=== PATIENT | female | born 1955 | race Caucasian/White ===

== ENCOUNTER 2016-05-29 09:31 | Emergency (ER) | payer BC ==
[~2016-05-29 09:31] MED LIST: ACETAMINOPHEN325 MG PO; AMBIEN5 MG PO; EFFEXOR25 MG PO; LANOXIN0.25 MG PO; LOPRESSOR25 MG PO; LORAZEPAM1 MG PO; METOPROLOL SUCCINATE PO; NITROSTAT0.4 MG SL; OMEPRAZOLE20 M1 PO; Prazosin PO; SIMVASTATIN20 MG PO; VICODIN EQUIVAL1 TAB PO; VITAMIN B12100 MCG PO; VITAMIN D-31000 UNIT PO; brintellix PO
--- NOTE | 2016-05-29 10:37 | ED CLINICAL REPORT ---
Clinical Report - Physicians/Mid Levels [facility] [address] [place] [address] 05/29/2016 9:31 Patient: MATT AGUAYO Time Seen: 10:26. Arrived- By private vehicle. Historian- patient. HISTORY OF PRESENT ILLNESS Chief Complaint: DYSURIA. This started today and still present. It was abrupt in onset and has been constant. The symptoms are described as severe. The patient has had burning pain with urination. It is described as "painful", has occurred during urination and has been associated with urgency and frequency. The patient has had urinary frequency. The patient has had urgency of urination. No hematuria. The patient has had a hysterectomy. REVIEW OF SYSTEMS No chills, fever, sweats, calf pain or chest pain. No cough, difficulty breathing, pedal edema, palpitations or abdominal pain. No constipation, diarrhea, vomiting or urinary problems. The patient has had nausea. She has had back pain (chronically). It has been similar to previous symptoms. All systems otherwise negative, except as recorded above. PAST HISTORY ( PCP - Shawna). Problems: Abdominal Pain. Cancer. Pancreatitis. Paralytic Ileus. Chest Pain. Gallbladder Disease. Arrythmia. Back Pain. Heart Disease. Reflux. Hypercholesterolemia. Hyperc. "heart palpitations". UTI - Urinary Tract Infection. Breast Cancer. Hystectomy. Appendicitis. Additional Surgeries: Appendectomy. Breast reconstruction. Cholecystectomy. Hysterectomy. Laparoscopy. Lumpectomy right side. Oophorectomy. Salpingectomy. Medications: LORazepam Oral 0.5 mg (hasn't started taking yet). Metoprolol Succinate ER Oral 50 mg (hasn't started taking yet). Metoprolol Tartrate Oral (Tablet 25 mg) 1 tablet, q day. Omeprazole Oral 20 mg, 2x a day. Prazosin HCl Oral 0.1mg (hasn't started taking yet). Simvastatin Oral 20 mg, daily. Vitamin B 12 Oral 1 tab, daily. Vitamin D3 Oral (Tablet 2000 unit) 2 tablets, daily. Zolpidem Tartrate Oral 5-10 mg, at bedtime as needed. Brintellix Oral (Tablet 10 mg) 1 tablet, BID (hasn't started taking yet). Lanoxin Oral 0.125 mg, daily. Allergies: Pastic tape. SOCIAL HISTORY Never smoker. No alcohol use or drug use. FAMILY HISTORY father due to myasthenia gravis complications. ADDITIONAL NOTES The nursing notes have been reviewed. PHYSICAL EXAM Vital Signs: 05/29/2016 10:10 BP: 122/86. HR: 80. RR: 16. O2 saturation: 98%. Temp: 98.2 F. Have been reviewed. Appearance: Alert. ENT: Pharynx normal. Neck: Neck supple. CVS: Heart sounds normal. Respiratory: No respiratory distress. Breath sounds normal. Abdomen: Soft and nontender. Bowel sounds normal. No organomegaly. No mass. Back: Normal external inspection. No CVA tenderness. Skin: Skin warm and dry. Normal skin color. Normal skin turgor. Extremities: Extremities nontender. No calf tenderness. No lower extremity edema. LABS, X-RAYS, AND EKG Laboratory Tests: UA-Culture if indicated: (RINKU: 05/29/2016 10:05) ( MsgRcvd 05/29/2016 10:47) Final results Test Result Flag Units (Reference) URINE COLOR YELLOW URINE APPEARANCE TURBID URINE GLUCOSE NEGATIVE (NEGATIVE) URINE BILIRUBIN NEGATIVE (NEGATIVE) URINE KETONE NEGATIVE (NEGATIVE) URINE SPECIFIC GRAVITY 1.020 (1.010-1.030) URINE PH 6.5 (5.0-8.0) URINE PROTEIN 1+ (NEGATIVE) URINE UROBILINOGEN 1.0 EU/dL (0.2-1.0) URINE NITRITE POSITIVE (NEGATIVE) URINE BLOOD 3+ (NEGATIVE) URINE LEUK ESTERASE POSITIVE (NEGATIVE) URINE RBC 75-100 rbc/hpf (0-1) URINE WBC >100 wbc/hpf (0-1) URINE EPITHELIAL CELLS 3-5 EPI/hpf (0-5) URINE BACTERIA FEW (1+) (NONE SEEN) URINE COMMENT CULTURE INDICATED URINE CULTURES ARE SET-UP BASED ON THE FOLLOWING CRITERIA:POSITIVE NITRITEPOSITIVE LEUKOCYTE ESTERASEGREATER THAN 10 WHITE BLOOD CELLSMODERATE (2+) OR GREATER BACTERIA . PROGRESS AND PROCEDURES Course of Care: Patient is stable. Patient/family counseled. Old medical records reviewed. Disposition: Discharged. Condition: stable. CLINICAL IMPRESSION Acute urinary tract infection. INSTRUCTIONS Drink plenty of fluids. Warnings: GENERAL WARNINGS: Return or contact your physician immediately if your condition worsens or changes unexpectedly, if not improving as expected, or if other problems arise. Prescription Medications: Pyridium 200 mg: take 1 orally every 8 hours as needed for urinary problems. Dispense six (6). No refills. Substitution is permissible. Cipro 500 mg: take 1 tab orally every 12 hours for 7 days. Dispense fourteen (14). No refills. Substitution is permissible. Understanding of the discharge instructions verbalized by patient. (Electronically signed by Robert Flor MD 05/29/2016 11:25)
--- NOTE | 2016-05-29 10:37 | ED ORDER SUMMARY ---
..... Patient: MATT AGUAYO OrderSheet [facility] VisitID: [id number] [address] [place] [address] 61y, F Registration Date/Time: 05/29/2016 ORDER SHEET Weight: 78.4 kg Allergies: Pastic tape GENERAL ORDERS: UA-Culture if indicated Urgent (10:14 05/29/2016 Karis per protocol) (10:23 Karis) MEDICATION ORDERS: IV FLUIDS: ORDER SHEET NOTES: [Electronically signed by Annalisa Arellano (10:43 05/29/2016)] [Electronically signed by Robert Flor MD (11:25 05/29/2016)] [Electronically locked/signed by Annalisa Arellano (10:43 05/29/2016)]
--- NOTE | 2016-05-29 10:37 | ED NURSING NOTES ---
Clinical Report - Nurses [facility] [address] [place] [address] 05/29/2016 9:31 Patient: MATT AGUAYO TRIAGE Triage time 1005. Acuity: LEVEL 4. Chief Complaint: PAINFUL URINATION, URGENCY and FREQUENCY. Alert. No acute distress. --10:13 Annalisa Arellano 10:10 05/29/16. BP: 122/86. HR: 80. RR: 16. O2 saturation: 98%. Temp: 98.2 F. Pain level now 08/20. --10:13 Annalisa Arellano. Weight: 78.4 kg. Height/Length: 63 inches. BMI: 30.6. --10:09 Annalisa Arellano. Medications Brintellix Oral (Tablet 10 mg) 1 tablet, BID (hasn't started taking yet). Lanoxin Oral 0.125 mg, daily. --10:11 Annalisa Arellano LORazepam Oral 0.5 mg (hasn't started taking yet). Metoprolol Succinate ER Oral 50 mg (hasn't started taking yet). Metoprolol Tartrate Oral (Tablet 25 mg) 1 tablet, q day. Omeprazole Oral 20 mg, 2x a day. Prazosin HCl Oral 0.1mg (hasn't started taking yet). Simvastatin Oral 20 mg, daily. Vitamin B 12 Oral 1 tab, daily. Vitamin D3 Oral (Tablet 2000 unit) 2 tablets, daily. Zolpidem Tartrate Oral 5-10 mg, at bedtime as needed. --10:11 Annalisa Arellano. Allergies Pastic tape. --10:11 Annalisa Arellano. History Arrived by private vehicle. Historian: patient. This started today. 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 SOCIAL HX: Never smoker. FALL RISK ASSESSMENT: Fall risk assessment completed. No fall risk identified. NUTRITIONAL RISK ASSESSMENT: The nutritional risk assessment revealed no deficiencies. FUNCTIONAL ASSESSMENT: Functional assessment: no impairments noted. LEARNING NEEDS ASSESSMENT: The learning needs assessment revealed no barriers. SKIN INTEGRITY ASSESSMENT: Skin integrity risk assessment completed. No skin integrity risk identified. --10:13 Annalisa Arellano. PROBLEMS: Abdominal Pain. Cancer. Pancreatitis. Paralytic Ileus. Chest Pain. Gallbladder Disease. Arrythmia. Back Pain. Heart Disease. Immunizations. Reflux. Hypercholesterolemia. "heart palpitations". Breast Cancer. LNMP - Last Normal Menstrual Period. Hystectomy. Appendicitis. --10:12 Annalisa Arellano. ADDITIONAL SURGERIES: Appendectomy. Breast reconstruction. Cholecystectomy. Hysterectomy. Laparoscopy. Lumpectomy right side. Oophorectomy. Salpingectomy. --10:12 Annalisa Arellano. Interventions To treatment room. --10:13 Annalisa Arellano. PHYSICAL ASSESSMENT Ambulatory to room. GENERAL / NEURO / PSYCH: Alert. Oriented X 4. Appears in no acute distress. HEENT: Mucous membranes are pink. RESPIRATORY: Respirations not labored. Breath sounds within normal limits. CVS: Normal heart rate and rhythm. Capillary refill less than 2 seconds. GI / : Abdomen soft and nontender. Bowel sounds within normal limits. Pain with urination. She has had frequency of urination. Urgency of urination. SKIN: Skin is warm and dry. --10:14 Annalisa Arellano. NURSING PROGRESS NOTES Reassurance given. Call light placed in reach. Side rails up x 1. Bed placed in lowest position. Brakes of bed on. Patient ready for evaluation- chart flagged. --10:14 Annalisa Arellano. DISPOSITION / DISCHARGE Departure time: 1043. Condition at departure: unchanged and stable. Discharge instructions provided and reviewed with the patient. Reviewed medication(s). Patient verbalized understanding. Written instructions provided in Colombian. The patient was discharged by the physician. She was discharged home. She left the Emergency Department ambulatory and via private vehicle. Patient driving. --10:43 Annalisa Arellano. Locked/Released at 05/29/2016 10:43 by Annalisa Arellano,
--- NOTE | 2016-05-29 10:37 | ED NURSING NOTES ---
Clinical Report - Nurses [facility] [address] [place] [address] 05/29/2016 9:31 Patient: MATT AGUAYO TRIAGE Triage time 1005. Acuity: LEVEL 4. Chief Complaint: PAINFUL URINATION, URGENCY and FREQUENCY. Alert. No acute distress. --10:13 Annalisa Arellano 10:10 05/29/16. BP: 122/86. HR: 80. RR: 16. O2 saturation: 98%. Temp: 98.2 F. Pain level now 08/20. --10:13 Annalisa Arellano. Weight: 78.4 kg. Height/Length: 63 inches. BMI: 30.6. --10:09 Annalisa Arellano. Medications Brintellix Oral (Tablet 10 mg) 1 tablet, BID (hasn't started taking yet). Lanoxin Oral 0.125 mg, daily. --10:11 Annalisa Arellano LORazepam Oral 0.5 mg (hasn't started taking yet). Metoprolol Succinate ER Oral 50 mg (hasn't started taking yet). Metoprolol Tartrate Oral (Tablet 25 mg) 1 tablet, q day. Omeprazole Oral 20 mg, 2x a day. Prazosin HCl Oral 0.1mg (hasn't started taking yet). Simvastatin Oral 20 mg, daily. Vitamin B 12 Oral 1 tab, daily. Vitamin D3 Oral (Tablet 2000 unit) 2 tablets, daily. Zolpidem Tartrate Oral 5-10 mg, at bedtime as needed. --10:11 Annalisa Arellano. Allergies Pastic tape. --10:11 Annalisa Arellano. History Arrived by private vehicle. Historian: patient. This started today. 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 SOCIAL HX: Never smoker. FALL RISK ASSESSMENT: Fall risk assessment completed. No fall risk identified. NUTRITIONAL RISK ASSESSMENT: The nutritional risk assessment revealed no deficiencies. FUNCTIONAL ASSESSMENT: Functional assessment: no impairments noted. LEARNING NEEDS ASSESSMENT: The learning needs assessment revealed no barriers. SKIN INTEGRITY ASSESSMENT: Skin integrity risk assessment completed. No skin integrity risk identified. --10:13 Annalisa Arellano. PROBLEMS: Abdominal Pain. Cancer. Pancreatitis. Paralytic Ileus. Chest Pain. Gallbladder Disease. Arrythmia. Back Pain. Heart Disease. Immunizations. Reflux. Hypercholesterolemia. "heart palpitations". Breast Cancer. LNMP - Last Normal Menstrual Period. Hystectomy. Appendicitis. --10:12 Annalisa Arellano. ADDITIONAL SURGERIES: Appendectomy. Breast reconstruction. Cholecystectomy. Hysterectomy. Laparoscopy. Lumpectomy right side. Oophorectomy. Salpingectomy. --10:12 Annalisa Arellano. Interventions To treatment room. --10:13 Annalisa Arellano. PHYSICAL ASSESSMENT Ambulatory to room. GENERAL / NEURO / PSYCH: Alert. Oriented X 4. Appears in no acute distress. HEENT: Mucous membranes are pink. RESPIRATORY: Respirations not labored. Breath sounds within normal limits. CVS: Normal heart rate and rhythm. Capillary refill less than 2 seconds. GI / : Abdomen soft and nontender. Bowel sounds within normal limits. Pain with urination. She has had frequency of urination. Urgency of urination. SKIN: Skin is warm and dry. --10:14 Annalisa Arellano. NURSING PROGRESS NOTES Reassurance given. Call light placed in reach. Side rails up x 1. Bed placed in lowest position. Brakes of bed on. Patient ready for evaluation- chart flagged. --10:14 Annalisa Arellano. DISPOSITION / DISCHARGE Departure time: 1043. Condition at departure: unchanged and stable. Discharge instructions provided and reviewed with the patient. Reviewed medication(s). Patient verbalized understanding. Written instructions provided in [place] Islander. The patient was discharged by the physician. She was discharged home. She left the Emergency Department ambulatory and via private vehicle. Patient driving. --10:43 Annalisa Arellano. Locked/Released at 05/29/2016 10:43 by Annalisa Arellano,
--- NOTE | 2016-05-29 10:37 | ED ORDER SUMMARY ---
..... Patient: MATT AGUAYO OrderSheet [facility] VisitID: [id number] [address] [place] [address] 61y, F Registration Date/Time: 05/29/2016 ORDER SHEET Weight: 78.4 kg Allergies: Pastic tape GENERAL ORDERS: UA-Culture if indicated Urgent (10:14 05/29/2016 Karis per protocol) (10:23 Karis) MEDICATION ORDERS: IV FLUIDS: ORDER SHEET NOTES: [Electronically signed by Annalisa Arellano (10:43 05/29/2016)] [Electronically signed by Robert Flor MD (11:25 05/29/2016)] [Electronically locked/signed by Annalisa Arellano (10:43 05/29/2016)]
--- NOTE | 2016-05-29 11:26 | ED MED RECONCILIATION SUMMARY ---
Patient: MATT AGUAYO Medication Reconciliation Report [facility] VisitID: [id number] [address] [place] [address] 61y, F Registration Date/Time: 05/29/2016 Weight: 78.4 kg Height/Length: 63 in. BMI: 30.6 ALLERGIES: Pastic tape The patient's Home Medications are listed below: THE FOLLOWING MEDICATIONS NEED TO BE RECONCILED: Brintellix Oral (10 mg) 1 tablet, BID, hasn't started taking yet Lanoxin Oral 0.125 mg, daily LORazepam Oral 0.5 mg, hasn't started taking yet Metoprolol Succinate ER Oral 50 mg, hasn't started taking yet Metoprolol Tartrate Oral (25 mg) 1 tablet, q day Omeprazole Oral 20 mg, 2x a day Prazosin HCl Oral 0.1mg, hasn't started taking yet Simvastatin Oral 20 mg, daily Vitamin B 12 Oral 1 tab, daily Vitamin D3 Oral (2000 unit) 2 tablets, daily Zolpidem Tartrate Oral 5-10 mg, at bedtime The source(s) of the original Home Medication information: Not obtained. The following Medications were given to the patient in the Emergency Department: None. The following Medications were prescribed to the patient: Pyridium 200 mg: take 1 orally every 8 hours as needed for urinary problems. Dispense six (6). No refills. Substitution is permissible. -- Robert Flor MD Cipro 500 mg: take 1 tab orally every 12 hours for 7 days. Dispense fourteen (14). No refills. Substitution is permissible. -- Robert Flor MD
--- NOTE | 2016-05-29 11:26 | ED MED RECONCILIATION SUMMARY ---
Patient: MATT AGUAYO Medication Reconciliation Report [facility] VisitID: [id number] [address] [place] [address] 61y, F Registration Date/Time: 05/29/2016 Weight: 78.4 kg Height/Length: 63 in. BMI: 30.6 ALLERGIES: Pastic tape The patient's Home Medications are listed below: THE FOLLOWING MEDICATIONS NEED TO BE RECONCILED: Brintellix Oral (10 mg) 1 tablet, BID, hasn't started taking yet Lanoxin Oral 0.125 mg, daily LORazepam Oral 0.5 mg, hasn't started taking yet Metoprolol Succinate ER Oral 50 mg, hasn't started taking yet Metoprolol Tartrate Oral (25 mg) 1 tablet, q day Omeprazole Oral 20 mg, 2x a day Prazosin HCl Oral 0.1mg, hasn't started taking yet Simvastatin Oral 20 mg, daily Vitamin B 12 Oral 1 tab, daily Vitamin D3 Oral (2000 unit) 2 tablets, daily Zolpidem Tartrate Oral 5-10 mg, at bedtime The source(s) of the original Home Medication information: Not obtained. The following Medications were given to the patient in the Emergency Department: None. The following Medications were prescribed to the patient: Pyridium 200 mg: take 1 orally every 8 hours as needed for urinary problems. Dispense six (6). No refills. Substitution is permissible. -- Robert Flor MD Cipro 500 mg: take 1 tab orally every 12 hours for 7 days. Dispense fourteen (14). No refills. Substitution is permissible. -- Robert Flor MD
--- NOTE | 2016-05-29 11:26 | ED DISCHARGE INSTRUCTIONS ---
Patient: MATT AGUAYO General Instructions [facility] VisitID: [id number] [place] [address] 61y, F Registration Date/Time: 05/29/2016 Acute urinary tract infection. INSTRUCTIONS Drink plenty of fluids. Warnings: GENERAL WARNINGS: Return or contact your physician immediately if your condition worsens or changes unexpectedly, if not improving as expected, or if other problems arise. Prescription Medications: Pyridium 200 mg: take 1 orally every 8 hours as needed for urinary problems. Dispense six (6). No refills. Substitution is permissible. Cipro 500 mg: take 1 tab orally every 12 hours for 7 days. Dispense fourteen (14). No refills. Substitution is permissible. Understanding of the discharge instructions verbalized by patient. ADDITIONAL INFORMATION Bladder Infection,Female (Adult) A bladder infection ("cystitis" or "UTI") usually causes a constant urge to urinate and a burning when passing urine. Urine may be cloudy, smelly or dark. There may be pain in the lower abdomen. A bladder infection occurs when bacteria from the vaginal area enter the bladder opening (urethra). This can occur from sexual intercourse, wearing tight clothing, dehydration and other factors. Home Care: Drink lots of fluids (at least 6-8 glasses a day, unless you must restrict fluids for other medical reasons). This will force the medicine into your urinary system and flush the bacteria out of your body. Avoid sexual intercourse until your symptoms are gone. Avoid caffeine, alcohol and spicy foods. These can irritate the bladder. A bladder infection is treated with antibiotics. You may also be given Pyridium (generic = phenazopyridine) to reduce the burning sensation. This medicine will cause your urine to become a bright orange color. The orange urine may stain clothing. You may wear a pad or panty-liner to protect clothing. Preventing Future Infections: Always wipe from front to back after a bowel movement. Keep the genital area clean and dry. Drink plenty of fluids each day to avoid dehydration. Both sexual partners should wash before intercourse. Urinate right after intercourse to flush out the bladder. Wear cotton underwear and cotton-lined panty hose; avoid tight-fitting pants. If you are on control pills and are having frequent bladder infections, discuss with your doctor. Follow Up: Return to this facility or see your doctor if ALL symptoms are not gone after three days of treatment. Get Prompt Medical Attention if any of the following occur: Fever of 100.4F (38C) or higher, or as directed by your healthcare provider No improvement by the third day of treatment Increasing back or abdominal pain Repeated vomiting; unable to keep medicine down Weakness, dizziness or fainting Vaginal discharge Pain, redness or swelling in the labia (outer vaginal area) Phenazopyridine Hydrochloride Oral tablet What is this medicine? PHENAZOPYRIDINE (fen az oh PEER i jennie) is a pain reliever. It is used to stop the pain, burning, or discomfort caused by infection or irritation of the urinary tract. This medicine is not an antibiotic. It will not cure a urinary tract infection. How should I use this medicine? Take this medicine by mouth with a glass of water. Follow the directions on the prescription label. Take after meals. Take your doses at regular intervals. Do not take your medicine more often than directed. Do not skip doses or stop your medicine early even if you feel better. Do not stop taking except on your doctor's advice. Talk to your joint cutter regarding the use of this medicine in children. Special care may be needed. What side effects may I notice from receiving this medicine? Side effects that you should report to your doctor or health clinical manager home care as soon as possible: allergic reactions like skin rash, itching or hives, swelling of the face, lips, or tongue blue or purple color of the skin difficulty breathing fever less urine unusual bleeding, bruising unusual tired, weak vomiting yellowing of the eyes or skin Side effects that usually do not require medical attention (report to your doctor or health clinical manager home care if they continue or are bothersome): dark urine headache stomach upset What may interact with this medicine? Interactions are not expected. What if I miss a dose? If you miss a dose, take it as soon as you can. If it is almost time for your next dose, take only that dose. Do not take double or extra doses. Where should I keep my medicine? Keep out of the reach of children. Store at room temperature between 15 and 30 degrees C (59 and 86 degrees F). Protect from light and moisture. Throw away any unused medicine after the expiration date. What should I tell my health care provider before I take this medicine? They need to know if you have any of these conditions: ktipjmh-4-dyacqyfip dehydrogenase (G6PD) deficiency kidney disease an unusual or allergic reaction to phenazopyridine, other medicines, foods, dyes, or preservatives or trying to get breast-feeding What should I watch for while using this medicine? Tell your doctor or health clinical manager home care if your symptoms do not improve or if they get worse. This medicine colors body fluids red. This effect is harmless and will go away after you are done taking the medicine. It will change urine to an dark orange or red color. The red color may stain clothing. Soft contact lenses may become permanently stained. It is best not to wear soft contact lenses while taking this medicine. If you are diabetic you may get a false positive result for sugar in your urine. Talk to your health care provider. Ciprofloxacin Hydrochloride Oral tablet What is this medicine? CIPROFLOXACIN (sip ramona FLOX a sin) is a quinolone antibiotic. It is used to treat certain kinds of bacterial infections. It will not work for colds, flu, or other viral infections. How should I use this medicine? Take this medicine by mouth with a glass of water. Follow the directions on the prescription label. Take your medicine at regular intervals. Do not take your medicine more often than directed. Take all of your medicine as directed even if you think your are better. Do not skip doses or stop your medicine early. You can take this medicine with food or on an empty stomach. It can be taken with a meal that contains dairy or calcium, but do not take it alone with a dairy product, like milk or yogurt or calcium-fortified juice. A special MedGuide will be given to you by the pharmacist with each prescription and refill. Be sure to read this information carefully each time. Talk to your joint cutter regarding the use of this medicine in children. Special care may be needed. What side effects may I notice from receiving this medicine? Side effects that you should report to your doctor or health clinical manager home care as soon as possible: - allergic reactions like skin rash, itching or hives, swelling of the face, lips, or tongue - breathing problems - confusion, nightmares or hallucinations - feeling faint or lightheaded, falls - irregular heartbeat - joint, muscle or tendon pain or swelling - pain or trouble passing urine -persistent headache with or without blurred vision - redness, blistering, peeling or loosening of the skin, including inside the mouth - seizure - unusual pain, numbness, tingling, or weakness Side effects that usually do not require medical attention (report to your doctor or health clinical manager home care if they continue or are bothersome): - diarrhea - nausea or stomach upset - white patches or sores in the mouth What may interact with this medicine? Do not take this medicine with any of the following medications: cisapride droperidol terfenadine tizanidine This medicine may also interact with the following medications: antacids caffeine cyclosporin didanosine (ddI) buffered tablets or powder medicines for diabetes medicines for inflammation like ibuprofen, naproxen methotrexate multivitamins omeprazole phenytoin probenecid sucralfate theophylline warfarin What if I miss a dose? If you miss a dose, take it as soon as you can. If it is almost time for your next dose, take only that dose. Do not take double or extra doses. Where should I keep my medicine? Keep out of the reach of children. Store at room temperature below 30 degrees C (86 degrees F). Keep container tightly closed. Throw away any unused medicine after the expiration date. What should I tell my health care provider before I take this medicine? They need to know if you have any of these conditions: -bone problems -cerebral disease -joint problems -irregular heartbeat -kidney disease -liver disease -myasthenia gravis -seizure disorder -tendon problems -an unusual or allergic reaction to ciprofloxacin, other antibiotics or medicines, foods, dyes, or preservatives - or trying to get -breast-feeding What should I watch for while using this medicine? Tell your doctor or health clinical manager home care if your symptoms do not improve. Do not treat diarrhea with over the counter products. Contact your doctor if you have diarrhea that lasts more than 2 days or if it is severe and watery. You may get drowsy or dizzy. Do not drive, use machinery, or do anything that needs mental alertness until you know how this medicine affects you. Do not stand or sit up quickly, especially if you are an older patient. This reduces the risk of dizzy or fainting spells. This medicine can make you more sensitive to the sun. Keep out of the sun. If you cannot avoid being in the sun, wear protective clothing and use sunscreen. Do not use sun lamps or tanning beds/booths. Avoid antacids, aluminum, calcium, iron, magnesium, and zinc products for 6 hours before and 2 hours after taking a dose of this medicine. You have been given the following additional information: Bladder Infection, Female (Adult) Phenazopyridine Hydrochloride Oral tablet Ciprofloxacin Hydrochloride Oral tablet (Electronically signed by Robert Flor MD 05/29/2016 11:25)
--- NOTE | 2016-05-29 11:26 | ED MAR SUMMARY ---
..... Medication Administration Record [facility] [address] [place] [place], [place] [id number] Patient: MATT AGUAYO Visit ID: [id number] 61y, F Weight: 78.4 kg Height/Length: 63 in BMI: 30.6 ALLERGIES: Pastic tape
--- NOTE | 2016-05-29 11:26 | ED DISCHARGE INSTRUCTIONS ---
Patient: MATT AGUAYO General Instructions [facility] VisitID: [id number] [place] [address] 61y, F Registration Date/Time: 05/29/2016 Acute urinary tract infection. INSTRUCTIONS Drink plenty of fluids. Warnings: GENERAL WARNINGS: Return or contact your physician immediately if your condition worsens or changes unexpectedly, if not improving as expected, or if other problems arise. Prescription Medications: Pyridium 200 mg: take 1 orally every 8 hours as needed for urinary problems. Dispense six (6). No refills. Substitution is permissible. Cipro 500 mg: take 1 tab orally every 12 hours for 7 days. Dispense fourteen (14). No refills. Substitution is permissible. Understanding of the discharge instructions verbalized by patient. ADDITIONAL INFORMATION Bladder Infection,Female (Adult) A bladder infection ("cystitis" or "UTI") usually causes a constant urge to urinate and a burning when passing urine. Urine may be cloudy, smelly or dark. There may be pain in the lower abdomen. A bladder infection occurs when bacteria from the vaginal area enter the bladder opening (urethra). This can occur from sexual intercourse, wearing tight clothing, dehydration and other factors. Home Care: Drink lots of fluids (at least 6-8 glasses a day, unless you must restrict fluids for other medical reasons). This will force the medicine into your urinary system and flush the bacteria out of your body. Avoid sexual intercourse until your symptoms are gone. Avoid caffeine, alcohol and spicy foods. These can irritate the bladder. A bladder infection is treated with antibiotics. You may also be given Pyridium (generic = phenazopyridine) to reduce the burning sensation. This medicine will cause your urine to become a bright orange color. The orange urine may stain clothing. You may wear a pad or panty-liner to protect clothing. Preventing Future Infections: Always wipe from front to back after a bowel movement. Keep the genital area clean and dry. Drink plenty of fluids each day to avoid dehydration. Both sexual partners should wash before intercourse. Urinate right after intercourse to flush out the bladder. Wear cotton underwear and cotton-lined panty hose; avoid tight-fitting pants. If you are on control pills and are having frequent bladder infections, discuss with your doctor. Follow Up: Return to this facility or see your doctor if ALL symptoms are not gone after three days of treatment. Get Prompt Medical Attention if any of the following occur: Fever of 100.4F (38C) or higher, or as directed by your healthcare provider No improvement by the third day of treatment Increasing back or abdominal pain Repeated vomiting; unable to keep medicine down Weakness, dizziness or fainting Vaginal discharge Pain, redness or swelling in the labia (outer vaginal area) Phenazopyridine Hydrochloride Oral tablet What is this medicine? PHENAZOPYRIDINE (fen az oh PEER i jennie) is a pain reliever. It is used to stop the pain, burning, or discomfort caused by infection or irritation of the urinary tract. This medicine is not an antibiotic. It will not cure a urinary tract infection. How should I use this medicine? Take this medicine by mouth with a glass of water. Follow the directions on the prescription label. Take after meals. Take your doses at regular intervals. Do not take your medicine more often than directed. Do not skip doses or stop your medicine early even if you feel better. Do not stop taking except on your doctor's advice. Talk to your inker machine regarding the use of this medicine in children. Special care may be needed. What side effects may I notice from receiving this medicine? Side effects that you should report to your doctor or health team primary care physician as soon as possible: allergic reactions like skin rash, itching or hives, swelling of the face, lips, or tongue blue or purple color of the skin difficulty breathing fever less urine unusual bleeding, bruising unusual tired, weak vomiting yellowing of the eyes or skin Side effects that usually do not require medical attention (report to your doctor or health team primary care physician if they continue or are bothersome): dark urine headache stomach upset What may interact with this medicine? Interactions are not expected. What if I miss a dose? If you miss a dose, take it as soon as you can. If it is almost time for your next dose, take only that dose. Do not take double or extra doses. Where should I keep my medicine? Keep out of the reach of children. Store at room temperature between 15 and 30 degrees C (59 and 86 degrees F). Protect from light and moisture. Throw away any unused medicine after the expiration date. What should I tell my health care provider before I take this medicine? They need to know if you have any of these conditions: najgtep-9-hdeyvzcwk dehydrogenase (G6PD) deficiency kidney disease an unusual or allergic reaction to phenazopyridine, other medicines, foods, dyes, or preservatives or trying to get breast-feeding What should I watch for while using this medicine? Tell your doctor or health team primary care physician if your symptoms do not improve or if they get worse. This medicine colors body fluids red. This effect is harmless and will go away after you are done taking the medicine. It will change urine to an dark orange or red color. The red color may stain clothing. Soft contact lenses may become permanently stained. It is best not to wear soft contact lenses while taking this medicine. If you are diabetic you may get a false positive result for sugar in your urine. Talk to your health care provider. Ciprofloxacin Hydrochloride Oral tablet What is this medicine? CIPROFLOXACIN (sip ramona FLOX a sin) is a quinolone antibiotic. It is used to treat certain kinds of bacterial infections. It will not work for colds, flu, or other viral infections. How should I use this medicine? Take this medicine by mouth with a glass of water. Follow the directions on the prescription label. Take your medicine at regular intervals. Do not take your medicine more often than directed. Take all of your medicine as directed even if you think your are better. Do not skip doses or stop your medicine early. You can take this medicine with food or on an empty stomach. It can be taken with a meal that contains dairy or calcium, but do not take it alone with a dairy product, like milk or yogurt or calcium-fortified juice. A special MedGuide will be given to you by the pharmacist with each prescription and refill. Be sure to read this information carefully each time. Talk to your inker machine regarding the use of this medicine in children. Special care may be needed. What side effects may I notice from receiving this medicine? Side effects that you should report to your doctor or health team primary care physician as soon as possible: - allergic reactions like skin rash, itching or hives, swelling of the face, lips, or tongue - breathing problems - confusion, nightmares or hallucinations - feeling faint or lightheaded, falls - irregular heartbeat - joint, muscle or tendon pain or swelling - pain or trouble passing urine -persistent headache with or without blurred vision - redness, blistering, peeling or loosening of the skin, including inside the mouth - seizure - unusual pain, numbness, tingling, or weakness Side effects that usually do not require medical attention (report to your doctor or health team primary care physician if they continue or are bothersome): - diarrhea - nausea or stomach upset - white patches or sores in the mouth What may interact with this medicine? Do not take this medicine with any of the following medications: cisapride droperidol terfenadine tizanidine This medicine may also interact with the following medications: antacids caffeine cyclosporin didanosine (ddI) buffered tablets or powder medicines for diabetes medicines for inflammation like ibuprofen, naproxen methotrexate multivitamins omeprazole phenytoin probenecid sucralfate theophylline warfarin What if I miss a dose? If you miss a dose, take it as soon as you can. If it is almost time for your next dose, take only that dose. Do not take double or extra doses. Where should I keep my medicine? Keep out of the reach of children. Store at room temperature below 30 degrees C (86 degrees F). Keep container tightly closed. Throw away any unused medicine after the expiration date. What should I tell my health care provider before I take this medicine? They need to know if you have any of these conditions: -bone problems -cerebral disease -joint problems -irregular heartbeat -kidney disease -liver disease -myasthenia gravis -seizure disorder -tendon problems -an unusual or allergic reaction to ciprofloxacin, other antibiotics or medicines, foods, dyes, or preservatives - or trying to get -breast-feeding What should I watch for while using this medicine? Tell your doctor or health team primary care physician if your symptoms do not improve. Do not treat diarrhea with over the counter products. Contact your doctor if you have diarrhea that lasts more than 2 days or if it is severe and watery. You may get drowsy or dizzy. Do not drive, use machinery, or do anything that needs mental alertness until you know how this medicine affects you. Do not stand or sit up quickly, especially if you are an older patient. This reduces the risk of dizzy or fainting spells. This medicine can make you more sensitive to the sun. Keep out of the sun. If you cannot avoid being in the sun, wear protective clothing and use sunscreen. Do not use sun lamps or tanning beds/booths. Avoid antacids, aluminum, calcium, iron, magnesium, and zinc products for 6 hours before and 2 hours after taking a dose of this medicine. You have been given the following additional information: Bladder Infection, Female (Adult) Phenazopyridine Hydrochloride Oral tablet Ciprofloxacin Hydrochloride Oral tablet (Electronically signed by Robert Flor MD 05/29/2016 11:25)
--- NOTE | 2016-05-29 11:26 | ED MAR SUMMARY ---
..... Medication Administration Record [facility] [address] [place], [place] [id number] Patient: MATT AGUAYO Visit ID: [id number] 61y, F Weight: 78.4 kg Height/Length: 63 in BMI: 30.6 ALLERGIES: Pastic tape
== END 2016-05-29 10:43 | disposition home or self-care (01) ==
LOC: ED SRH 09:31
DX: N39.0 Urinary tract infection, site not specified (principal); K21.9 Gastro-esophageal reflux disease without esophagitis; Z79.899 Other long term (current) drug therapy
CPT/HCPCS: 90004; 90148; 90469

== ENCOUNTER 2016-07-30 16:50 | Inpatient (IN) | payer BC ==
[~2016-07-30] VITALS: Ht 160 cm; Wt 82.1 kg
--- NOTE | 2016-07-30 18:26 | ED ORDER SUMMARY ---
..... Patient: MATT AGUAYO OrderSheet [facility] VisitID: [id number] [place] [address] 61y, F Registration Date/Time: 07/30/2016 ORDER SHEET Weight: 80.2 kg (stated) Allergies: Pastic tape, Effexor GENERAL ORDERS: UA-Culture if indicated Urgent (17:06 07/30/2016 PHutchinson DO) (Ack 17:08 PWeiler ER Tech1) (17:35 JBest R.N.) Amylase Urgent (17:06 07/30/2016 PHutchinson DO) (Ack 17:08 PWeiler ER Tech1) (17:19 GMarshall R.N.) Lipase Urgent (17:07/30/2016 PHutchinson DO) (Ack 17:08 PWeiler ER Tech1) (17:19 GMarshall R.N.) Cardiac Panel Stat (17:06 07/30/2016 PHutchinson DO) (Ack 17:08 PWeiler ER Tech1) (17:19 GMarshall R.N.) BNP Urgent (17:06 07/30/2016 PHutchinson DO) (Ack 17:08 PWeiler ER Tech1) (17:19 GMarshall R.N.) PT with INR Urgent (17:06 07/30/2016 PHutchinson DO) (Ack 17:08 PWeiler ER Tech1) (17:19 GMarshall R.N.) Ethyl Alcohol Urgent (17:06 07/30/2016 PHutchinson DO) (Ack 17:08 PWeiler ER Tech1) (17:19 GMarshall R.N.) Lactate, Serum Urgent (17:06 07/30/2016 PHutchinson DO) (Ack 17:08 PWeiler ER Tech1) (17:19 GMarshall R.N.) (Cancelled: Other18:36 PHutchinson DO) (Cancelled: Physician Order18:37 PWeiler ER Tech1) Urine Urgent (17:06 07/30/2016 PHutchinson DO) (Ack 17:08 PWeiler ER Tech1) (17:35 JBest R.N.) Urine Drug Screen Urgent [facility] (Ack 17:08 PWeiler ER Tech1) (17:35 JBest R.N.) NPO (17:06 07/30/2016 PHokchinson DO) (17:18 GMarshall R.N.) Digoxin Level Urgent (17:14 07/30/2016 [facility] (Ack 17:16 PWeiler ER Tech1) (17:19 GMarshall R.N.) Old Records (from Dr. Matos's office) (17:14 07/30/2016 [facility] (Ack 17:16 PWeiler ER Tech1) (17:24 PWeiler ER Tech1) Call (Place call to): (Dr Matos) (18:25 07/30/2016 [facility] (Ack 18:30 PWeiler ER Tech1) (18:32 PWeiler ER Tech1) - (lipid panel) (18:47 07/30/2016 [facility] (Ack 18:51 PWeiler ER Tech1) (21:55 JBest R.N.) MEDICATION ORDERS: IV FLUIDS: IV NS : initial bolus 1000 mL (1000 mL/hr), then 500 mL/hr for X2 (NOW) (17:06 07/30/2016 [facility]) (17:28 JBest R.N.) Zofran IV 4 mg (NOW) (17:06 07/30/2016 [facility] (17:28 JBest R.N.) Dilaudid IV 0.5 mg (HIGH ALERT MEDICATION, NOW) (17:24 07/30/2016 [facility]) (17:35 JBest R.N.) Ceftriaxone IV 1 gm/50mL (NOW) (17:53 07/30/2016 [facility]) (Ack 18:00 JBest R.N.) (18:06 JBest R.N.) Magnesium Sulfate IV 1 gm / 25 ml (HIGH ALERT MEDICATION, over 1 hour) (18:35 07/30/[address] (19:15 JBest R.N.) ORDER SHEET NOTES: [Electronically signed by Judson Silver DO (21:46 07/30/2016)] [Electronically signed by Kindra Womack R.N. (:55 07/30/2016)] [Electronically locked/signed by Kindra Womack R.N. (:55 07/30/2016)]
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
--- NOTE | 2016-07-30 18:26 | ED ORDER SUMMARY ---
..... Patient: MATT AGUAYO OrderSheet [facility] VisitID: [id number] [place] [address] 61y, F Registration Date/Time: 07/30/2016 ORDER SHEET Weight: 80.2 kg (stated) Allergies: Pastic tape, Effexor GENERAL ORDERS: UA-Culture if indicated Urgent (17:06 07/30/2016 PHutchinson DO) (Ack 17:08 PWeiler ER Tech1) (17:35 JBest R.N.) Amylase Urgent (17:06 07/30/2016 PHutchinson DO) (Ack 17:08 PWeiler ER Tech1) (17:19 GMarshall R.N.) Lipase Urgent (17:07/30/2016 PHutchinson DO) (Ack 17:08 PWeiler ER Tech1) (17:19 GMarshall R.N.) Cardiac Panel Stat (17:06 07/30/2016 PHutchinson DO) (Ack 17:08 PWeiler ER Tech1) (17:19 GMarshall R.N.) BNP Urgent (17:06 07/30/2016 PHutchinson DO) (Ack 17:08 PWeiler ER Tech1) (17:19 GMarshall R.N.) PT with INR Urgent (17:06 07/30/2016 PHutchinson DO) (Ack 17:08 PWeiler ER Tech1) (17:19 GMarshall R.N.) Ethyl Alcohol Urgent (17:06 07/30/2016 PHutchinson DO) (Ack 17:08 PWeiler ER Tech1) (17:19 GMarshall R.N.) Lactate, Serum Urgent (17:06 07/30/2016 PHutchinson DO) (Ack 17:08 PWeiler ER Tech1) (17:19 GMarshall R.N.) (Cancelled: Other18:36 PHutchinson DO) (Cancelled: Physician Order18:37 PWeiler ER Tech1) Urine Urgent (17:06 07/30/2016 PHutchinson DO) (Ack 17:08 PWeiler ER Tech1) (17:35 JBest R.N.) Urine Drug Screen Urgent (17:06 07/30/2016 [facility] (Ack 17:08 PWeiler ER Tech1) (17:35 JBest R.N.) NPO (17:06 07/30/2016 PHwachinson DO) (17:18 GMarshall R.N.) Digoxin Level Urgent (17:14 07/30/2016 [facility]) (Ack 17:16 PWeiler ER Tech1) (17:19 GMarshall R.N.) Old Records (from Dr. Matos's office) (17:14 07/30/2016 [facility]) (Ack 17:16 PWeiler ER Tech1) (17:24 PWeiler ER Tech1) Call (Place call to): (Dr Matos) (18:25 07/30/2016 [facility]) (Ack 18:30 PWeiler ER Tech1) (18:32 PWeiler ER Tech1) - (lipid panel) (18:47 07/30/2016 [facility]) (Ack 18:51 PWeiler ER Tech1) (21:55 JBest R.N.) MEDICATION ORDERS: IV FLUIDS: IV NS : initial bolus 1000 mL (1000 mL/hr), then 500 mL/hr for X2 (NOW) (17:06 07/30/2016 [facility]) (17:28 JBest R.N.) Zofran IV 4 mg (NOW) (17:06 07/30/2016 [facility]) (17:28 JBest R.N.) Dilaudid IV 0.5 mg (HIGH ALERT MEDICATION, NOW) (17:24 07/30/2016 [facility]) (17:35 JBest R.N.) Ceftriaxone IV 1 gm/50mL (NOW) (17:53 07/30/2016 [facility]) (Ack 18:00 JBest R.N.) (18:06 JBest R.N.) Magnesium Sulfate IV 1 gm / 25 ml (HIGH ALERT MEDICATION, over 1 hour) (18:35 [facility]2016 [facility] (19:15 JBest R.N.) ORDER SHEET NOTES: [Electronically signed by Judson Silver DO (21:46 07/30/2016)] [Electronically signed by Kindra Womack R.N. (:55 07/30/2016)] [Electronically locked/signed by Kindra Womack R.N. (:55 07/30/2016)]
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
[2016-07-30 21:14] VITALS: BP 123/54
--- NOTE | 2016-07-30 21:55 | ED MED RECONCILIATION SUMMARY ---
Patient: MATT AGUAYO Medication Reconciliation Report [facility] VisitID: [id number] [address] [place] [address] 61y, F Registration Date/Time: 07/30/2016 Weight: 80.2 kg Height/Length: 63 in. BMI: 31.3 ALLERGIES: Effexor, Pastic tape The patient's Home Medications are listed below: CONTINUE TAKING THE FOLLOWING MEDICATIONS: Cephalexin Oral (500 mg) 1 capsule, 2x a day Janumet Oral Lanoxin Oral 0.125 mg, daily LORazepam Oral 0.5 mg, hasn't started taking yet Metoprolol Succinate ER Oral 50 mg, hasn't started taking yet Omeprazole Oral 20 mg, 2x a day Pristiq Oral (100 mg) 1 tablet, daily Simvastatin Oral 20 mg, daily Vitamin B 12 Oral 1 tab, daily Vitamin D3 Oral (2000 unit) 2 tablets, daily Zolpidem Tartrate Oral 5-10 mg, at bedtime The source(s) of the original Home Medication information: patient The following Medications were given to the patient in the Emergency Department: IV NS IV Fluids bolus 0, then 1000 mL/hr, administered: 07/30/2016 5:28:00 PM Zofran [IVP] IVP 4 mg, administered: 07/30/2016 5:28:00 PM Dilaudid [IVP] IVP 0.5 mg, administered: 07/30/2016 5:35:00 PM Ceftriaxone [IVPB] IVPB bolus 0, then 1 gm 150 mL/hr, administered: 07/30/2016 6:06:00 PM Magnesium Sulfate [IVP] IVP 1 gm, administered: 07/30/2016 7:15:00 PM The following Medications were prescribed to the patient: None.
--- NOTE | 2016-07-30 21:55 | ED MED RECONCILIATION SUMMARY ---
Patient: MATT AGUAYO Medication Reconciliation Report [facility] VisitID: [id number] [address] [place] [address] 61y, F Registration Date/Time: 07/30/2016 Weight: 80.2 kg Height/Length: 63 in. BMI: 31.3 ALLERGIES: Effexor, Pastic tape The patient's Home Medications are listed below: CONTINUE TAKING THE FOLLOWING MEDICATIONS: Cephalexin Oral (500 mg) 1 capsule, 2x a day Janumet Oral Lanoxin Oral 0.125 mg, daily LORazepam Oral 0.5 mg, hasn't started taking yet Metoprolol Succinate ER Oral 50 mg, hasn't started taking yet Omeprazole Oral 20 mg, 2x a day Pristiq Oral (100 mg) 1 tablet, daily Simvastatin Oral 20 mg, daily Vitamin B 12 Oral 1 tab, daily Vitamin D3 Oral (2000 unit) 2 tablets, daily Zolpidem Tartrate Oral 5-10 mg, at bedtime The source(s) of the original Home Medication information: patient The following Medications were given to the patient in the Emergency Department: IV NS IV Fluids bolus 0, then 1000 mL/hr, administered: 07/30/2016 5:28:00 PM Zofran [IVP] IVP 4 mg, administered: 07/30/2016 5:28:00 PM Dilaudid [IVP] IVP 0.5 mg, administered: 07/30/2016 5:35:00 PM Ceftriaxone [IVPB] IVPB bolus 0, then 1 gm 150 mL/hr, administered: 07/30/2016 6:06:00 PM Magnesium Sulfate [IVP] IVP 1 gm, administered: 07/30/2016 7:15:00 PM The following Medications were prescribed to the patient: None.
--- NOTE | 2016-07-30 21:55 | ED MAR SUMMARY ---
..... Medication Administration Record [facility] [address] [place] [address] Patient: MATT AGUAYO Visit ID: [id number] 61y, F Weight: 80.2 kg Height/Length: 63 in BMI: 31.3 ALLERGIES: Effexor, Pastic tape Start 17:28 07/30/2016 Kindra Womack R.N., Stop 20:37 07/30/2016 Kindra Womack R.N. Medication Administered: IV NS (SALINE), Dose: IV Fluids over 1 hour(s), Rate: 1000 mL/hr, Dispensed: 1000 mL bag, Site: #1 right AC. Medication Ordered: IV NS : initial bolus 1000 mL (1000 mL/hr), then 500 mL/hr for X2 (NOW). Given 17:28 07/30/2016 Kindra Womack R.N. Medication Administered: ZOFRAN [IVP] (ONDANSETRON HCL), Dose: 4 mg IVP, Site: #1 right AC. Medication Ordered: Zofran IV 4 mg (NOW). Given 17:35 07/30/2016 Kindra Womack R.N. Medication Administered: DILAUDID [IVP] (HYDROMORPHONE HCL PF), Dose: 0.5 mg IVP, Site: #1 right AC. Medication Ordered: Dilaudid IV 0.5 mg (HIGH ALERT MEDICATION, NOW). Start 18:06 07/30/2016 Kindra Womack R.N., Stop 18:26 07/30/2016 Kindra Womack R.N. Medication Administered: CEFTRIAXONE [IVPB], Dose: 1 gm IVPB over 20 minute(s), Rate: 150 mL/hr, Dispensed: 50 mL bag, Site: #1 right AC. Medication Ordered: Ceftriaxone IV 1 gm/50mL (NOW). Given 19:15 07/30/2016 Kindra Womack R.N. Medication Administered: MAGNESIUM SULFATE [IVP] (MAGNESIUM SULFATE IN D5W), Dose: 1 gm IVP over 1 hour(s), Site: #1 right AC. Medication Ordered: Magnesium Sulfate IV 1 gm / 25 ml (HIGH ALERT MEDICATION, over 1 hour).
--- NOTE | 2016-07-30 21:55 | ED MAR SUMMARY ---
..... Medication Administration Record [facility] [address] [place] [address] Patient: MATT AGUAYO Visit ID: [id number] 61y, F Weight: 80.2 kg Height/Length: 63 in BMI: 31.3 ALLERGIES: Effexor, Pastic tape Start 17:28 07/30/2016 Kindra Womack R.N., Stop 20:37 07/30/2016 Kindra Womack R.N. Medication Administered: IV NS (SALINE), Dose: IV Fluids over 1 hour(s), Rate: 1000 mL/hr, Dispensed: 1000 mL bag, Site: #1 right AC. Medication Ordered: IV NS : initial bolus 1000 mL (1000 mL/hr), then 500 mL/hr for X2 (NOW). Given 17:28 07/30/2016 Kindra Womack R.N. Medication Administered: ZOFRAN [IVP] (ONDANSETRON HCL), Dose: 4 mg IVP, Site: #1 right AC. Medication Ordered: Zofran IV 4 mg (NOW). Given 17:35 07/30/2016 Kindra Womack R.N. Medication Administered: DILAUDID [IVP] (HYDROMORPHONE HCL PF), Dose: 0.5 mg IVP, Site: #1 right AC. Medication Ordered: Dilaudid IV 0.5 mg (HIGH ALERT MEDICATION, NOW). Start 18:06 07/30/2016 Kindra Womack R.N., Stop 18:26 07/30/2016 Kindra Womack R.N. Medication Administered: CEFTRIAXONE [IVPB], Dose: 1 gm IVPB over 20 minute(s), Rate: 150 mL/hr, Dispensed: 50 mL bag, Site: #1 right AC. Medication Ordered: Ceftriaxone IV 1 gm/50mL (NOW). Given 19:15 07/30/2016 Kindra Womack R.N. Medication Administered: MAGNESIUM SULFATE [IVP] (MAGNESIUM SULFATE IN D5W), Dose: 1 gm IVP over 1 hour(s), Site: #1 right AC. Medication Ordered: Magnesium Sulfate IV 1 gm / 25 ml (HIGH ALERT MEDICATION, over 1 hour).
--- NOTE | 2016-07-30 21:55 | ED DISCHARGE INSTRUCTIONS ---
Patient: MATT AGUAYO General Instructions [facility] VisitID: [id number] [place] [address] 61y, F Registration Date/Time: 07/30/2016 Acute idiopathic pancreatitis. Acute urinary tract infection with cystitis. INSTRUCTIONS Avoid alcohol and NSAIDS. Examples of NSAIDS include aspirin, ibuprofen (Advil) and naproxen (Aleve). Avoid fatty, fried/greasy, lactose-containing (such as milk, cheese and ice cream), salty and spicy foods. Your Current Medications: CONTINUE TAKING THE FOLLOWING MEDICATIONS: Cephalexin Oral : Capsule 500 mg, 1 capsule 2x a day. Janumet Oral. Lanoxin Oral : 0.125 mg daily. LORazepam Oral : 0.5 mg, hasn't started taking yet. Metoprolol Succinate ER Oral : 50 mg, hasn't started taking yet. Omeprazole Oral : 20 mg 2x a day. Pristiq Oral : Tablet Extended Release 24 Hour 100 mg, 1 tablet daily. Simvastatin Oral : 20 mg daily. Vitamin B 12 Oral : 1 tab daily. Vitamin D3 Oral : Tablet 2000 unit, 2 tablets daily. Zolpidem Tartrate Oral : 5-10 mg at bedtime, prn. ADDITIONAL INFORMATION Bladder Infection,Female (Adult) A bladder infection ("cystitis" or "UTI") usually causes a constant urge to urinate and a burning when passing urine. Urine may be cloudy, smelly or dark. There may be pain in the lower abdomen. A bladder infection occurs when bacteria from the vaginal area enter the bladder opening (urethra). This can occur from sexual intercourse, wearing tight clothing, dehydration and other factors. Home Care: Drink lots of fluids (at least 6-8 glasses a day, unless you must restrict fluids for other medical reasons). This will force the medicine into your urinary system and flush the bacteria out of your body. Avoid sexual intercourse until your symptoms are gone. Avoid caffeine, alcohol and spicy foods. These can irritate the bladder. A bladder infection is treated with antibiotics. You may also be given Pyridium (generic = phenazopyridine) to reduce the burning sensation. This medicine will cause your urine to become a bright orange color. The orange urine may stain clothing. You may wear a pad or panty-liner to protect clothing. Preventing Future Infections: Always wipe from front to back after a bowel movement. Keep the genital area clean and dry. Drink plenty of fluids each day to avoid dehydration. Both sexual partners should wash before intercourse. Urinate right after intercourse to flush out the bladder. Wear cotton underwear and cotton-lined panty hose; avoid tight-fitting pants. If you are on control pills and are having frequent bladder infections, discuss with your doctor. Follow Up: Return to this facility or see your doctor if ALL symptoms are not gone after three days of treatment. Get Prompt Medical Attention if any of the following occur: Fever of 100.4F (38C) or higher, or as directed by your healthcare provider No improvement by the third day of treatment Increasing back or abdominal pain Repeated vomiting; unable to keep medicine down Weakness, dizziness or fainting Vaginal discharge Pain, redness or swelling in the labia (outer vaginal area) [place] Diet A bland diet is used for patients with an upset stomach. It consists of foods that are mild and easy to digest. It is better to eat small frequent meals rather than three large meals a day. BEVERAGES OK: Fruit juices, non-caffeinated teas and coffee, non-carbonated holt AVOID: Carbonated beverage, caffeinated tea and coffee, all alcoholic beverages BREAD OK: Refined white, wheat or rye bread, anna or soda crackers, [place] toast, plain rolls, bagels AVOID: Whole-grain bread CEREAL OK: Refined cereals: cooked or ready to eat AVOID: Whole grain cereals and granola, or those containing bran, seeds or nuts DESSERTS OK: Peanut butter and all others except those to "avoid" AVOID: Chocolate, cocoa, coconut, popcorn, nuts, seeds, jam, marmalade FRUITS OK: Canned, cooked, frozen or fresh fruits without seeds or tough skin AVOID: Olives, skin and seeds of fruit MEATS OK: All fresh or preserved meat, fish and fowl AVOID: Any that are prepared with those spices to "avoid" CHEESE & EGGS OK: Eggs, cottage cheese, cream cheese, other cheeses AVOID: All cheeses made with those spices to "avoid" POTATOES & PASTA OK: Potato, rice, macaroni, noodles, spaghetti AVOID: None SOUPS OK: All soups without heavy seasoning AVOID: Soups made with those spices to "avoid" VEGETABLES OK: Canned, cooked, fresh or frozen mildly flavored vegetables without seeds, skins or coarse fiber AVOID: Vegetables prepared with those spices to "avoid"; skin and seeds of vegetables and those with coarse fiber SPICES OK: Salt, lemon and [place] juice, vinegar, all extracts, lety, cinnamon, thyme, mace, allspice, paprika AVOID: [place] powder, cloves, pepper, seed spices, garlic, gravy pickles, highly seasoned salad dressings You have been given the following additional information: Bladder Infection, Female (Adult) Diet, [place] (Adult) (Electronically signed by Judson Silver DO 07/30/2016 21:46)
[2016-07-30] MEDS ORDERED: PRISTIQ100 MG PO (22:03)
[2016-07-30] MEDS ORDERED: JANUMET XR1 TA1 PO (22:05)
[2016-07-30] MEDS ORDERED: CEPHALEXIN500 MG PO (22:07)
[2016-07-30] MEDS ORDERED: MELOXICAM15 MG PO (22:08)
[2016-07-30 22:29] VITALS: BP 109/51
[2016-07-31 02:24] VITALS: BP 90/49
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
[2016-07-31 06:17] VITALS: BP 92/51
--- NOTE | 2016-07-31 09:31 | DIAGNOSTIC IMAGING REPORT ---
PROCEDURE: CT ABD/PELVIS WITH CONTRAST CLINICAL INDICATION: Recurrent pancreatitis. Initial encounter. TECHNIQUE: 125 ml. of Isovue 300 were injected intravenously and axial images were obtained of the entire abdomen and pelvis with sagittal and coronal reformations. COMPARISON: CT abdomen/pelvis 07/25/2015 and 02/21/2014.. FINDINGS: ABDOMEN: Minor right middle lobe scarring. Heart size is normal. Pancreas is normal in size and shape without inflammatory changes. Stable tiny lipoma in the tail of the pancreas. Liver measures 18.8 sinus with diffuse steatosis. Stable 2.2 cm hypodensity in the central aspect of the left hepatic lobe. Cholecystectomy. The spleen, adrenal glands and adrenal glands are normal. Small stable bilateral renal cysts. Normal abdominal aorta. Nonspecific bowel gas pattern. PELVIS: Status post appendectomy and hysterectomy. Normal bladder. No inflammatory changes or free fluid. Bones are unremarkable. IMPRESSION: 1. Pancreas within normal limits 2. Hepatic steatosis 3. Stable 2.2 cm hepatic lesion, most likely benign, possibly a hemangioma. 4. Status post cholecystectomy, appendectomy and hysterectomy All CT scans at this facility use dose modulation, iterative reconstruction, and/or weight-based dosing when appropriate to reduce radiation dose to as low as reasonably achievable.
[2016-07-31 10:08] VITALS: BP 107/53
[2016-07-31 14:25] VITALS: BP 107/52
[2016-07-31 18:31] VITALS: BP 109/54
[2016-07-31 22:26] VITALS: BP 106/56
[2016-08-01 04:34] VITALS: BP 123/57
[2016-08-01 06:50] VITALS: BP 109/53
--- NOTE | 2016-08-01 07:16 | DIAGNOSTIC IMAGING REPORT ---
PROCEDURE: XR CHEST 1 VIEW INDICATION: RULE OUT PNEUMONIA TECHNIQUE: Portable AP view 05:54 a.m. COMPARISON: Chest x-ray 09/02/2014 FINDINGS: Lungs are clear. Heart and mediastinum are normal. Thorax is normal. There are surgical clips overlying the right lower thorax. No significant interval change. IMPRESSION: 1. No acute changes.
[2016-08-01 13:17] VITALS: BP 104/47
[2016-08-01 18:25] VITALS: BP 97/55
[2016-08-01 23:37] VITALS: BP 102/42
[2016-08-02 02:15] VITALS: BP 125/55
[2016-08-02 06:16] VITALS: BP 122/53
[2016-08-02 10:07] VITALS: BP 106/69
[2016-08-02] MEDS ORDERED: METFORMIN HCL500 M3 PO (10:43)
--- NOTE | 2016-08-02 10:49 | Provider's Discharge Care Plan ---
Problem, Goal, Plan Problem List 1. Pancreatitis, acute Goals: Improve disease control, Improve function, Improved health/wellness, Increase independence, Improve nutrition status Instructions: Follow up as directed, Take meds as directed, Reduce stress, follow low fat diet. Stop Janumet. 2. UTI (urinary tract infection) Goals: Improve disease control, Improve function, Improved health/wellness, Increase independence Instructions: Follow up as directed, Increase activity level, Take meds as directed, Reduce stress, Take cephalexin 500 mg twice daily x 3 more d after DC home. 3. Type 2 diabetes mellitus Goals: Improve disease control, Improve function, Improved health/wellness, Increase independence, Improve nutrition status Instructions: Follow up as directed, Increase activity level, Take meds as directed, Reduce stress, Change to extended release metformin 500mg tabs. Take 3 tab at suppertime 4. PTSD (post-traumatic stress disorder) Goals: Improve function, Improved health/wellness, Increase independence, Improve nutrition status Instructions: Follow up as directed, Increase activity level, Take meds as directed, Reduce stress, Continue Pristiq
--- NOTE | 2016-08-07 08:19 | DISCHARGE SUMMARY ---
ADMIT DATE: 07/30/2016 DISCHARGE DATE: 08/02/2016 ADMITTING DIAGNOSIS: 1. Acute pancreatitis DISCHARGE DIAGNOSES: 1. Acute pancreatitis, probably secondary to Januvia. 2. Other problems include type 2 adult-onset diabetes, relatively new onset. 3. History of supraventricular tachycardia 4. Depression and posttraumatic stress syndrome. 5. Chronic degenerative disk disease of the lumbar spine with episodic pain. 6. Labile blood pressure readings. 7. History of breast cancer. 8. Urinary tract infection, resolving. PROCEDURE PERFORMED: 1. None BRIEF HISTORY: Please see the dictated discharge summary for details concerning admission. HOSPITAL COURSE: The patient is a 61-year-old white female who has had several episodes of pancreatitis in the past and was recently diagnosed with adult-onset diabetes. She developed rather acute epigastric pain radiating to her back, associated with quite pronounced anorexia and nausea in the afternoon and evening of her admission and it felt like previous bouts of pancreatitis she has had. She had been started on Janumet about a week and a half to 2 weeks prior to this episode to help improve diabetes controlled. Her initial enzymes showed amylase to be 86 and lipase to be 1913. She showed no evidence of other major abnormalities other than a somewhat low magnesium at 1.6. She had an abdominal CT scan done the day following her admission and this showed no evidence of major inflammation of the pancreas or other abnormality. She was treated initially with bowel rest with n.p.o. status and IV fluids. On the second hospital day, as her lipase improved, she was advanced to clear liquids. On the third hospital day, she was able to be advanced to a consistent carbohydrate diet with her lipase on that date being 192. She had some intestinal cramping related to this and some nausea. She was kept overnight another day to see if she would do well. The following day, her lipase was 187. She had some cramping in the morning and was able to keep down lunch and keep down supper and was able to be discharged home in the evening feeling quite well. She did have a cholesterol profile done, which showed total cholesterol to be 125, triglycerides 96, LDL 76 , HDL 30. She had been started on cephalexin 500 mg b.i.d. for E. coli urinary tract infection prior to coming into the hospital. She was maintained on cefazolin intravenously and then this was switched to cephalexin orally to finish out treatment for this problem. She was also maintained on Pristiq starting on the second hospital day to treat her problem with depression and posttraumatic stress issues. This worked very well for her when other antidepressant had not really work at all. By the evening of 08/02/2016, she was doing well and keeping down her usual medications and was discharged home. Her diabetes regimen was switched to simply long-acting metformin and she was told to avoid the Janumet and Januvia. She will follow up at my office in about 1 week. DISCHARGE INSTRUCTIONS/MEDICATIONS: 1. Will include Metformin extended release 500 mg tablets 3 tablets (1500 mg) around 1800 each day. 2. She also will continue vitamin B12 100 mcg strength 1 daily. 3. Simvastatin 20 mg strength 1 daily. 4. Omeprazole 20 mg capsule 1 twice daily. 5. Zolpidem 5 mg strength 1 at bedtime. 6. Digoxin 0.125 mg 1 daily. 7. Metoprolol succinate 50 mg strength 1 at bedtime. 8. Nitroglycerin 0.4 mg sublingually p.r.n. chest pain secondary to esophageal spasm. 9. She will continue Pristiq 100 mg daily for depression and will continue Meloxicam 15 mg p.o. once daily as needed for lower back pain. 10. She will also continue with cephalexin 500 mg p.o. b.i.d. for about 3 more days to complete her course of treatment for the urinary tract infection. 11. Followup will be in my office in about 5 days following discharge.
== END 2016-08-02 14:00 | disposition home or self-care (01) | DRG 439 ==
LOC: ED SRH 16:50 → TRANS SRH 18:40 → ACUTE2 SRH 21:00
PROVIDERS: ADMIT Family Medicine
DX: K85.30 Drug induced acute pancreatitis without necrosis or infection (principal); T38.3X5A Adverse effect of insulin and oral hypoglycemic [antidiabetic] drugs, initial encounter; N39.0 Urinary tract infection, site not specified; B96.20 Unspecified Escherichia coli [E. coli] as the cause of diseases classified elsewhere; E11.9 Type 2 diabetes mellitus without complications; E83.42 Hypomagnesemia; K21.9 Gastro-esophageal reflux disease without esophagitis; F43.12 Post-traumatic stress disorder, chronic; Z79.84 Long term (current) use of oral hypoglycemic drugs; F32.9 Major depressive disorder, single episode, unspecified
CPT/HCPCS: 90004; 90047; 90074; 90098; 90100; 90469; 90616; 91320; 91672; 92010; 92132; 92235; 92530; 92610; 92690; 92720; 92760; 92761; 92762; 92763; 92764; 92765; 92766; 92767; 93020; 93070; 94060; 95059